=== PATIENT | male | born 1990 | race Caucasian/White ===

== ENCOUNTER → 2022-07-20 11:10 | Outpatient (CLI) | payer OTHER, SELFPAY ==
[2022-07-20 12:07] LABS: COVID19 -Nasal RAPID Negative (Negative)
--- NOTE | 2022-07-26 09:35 | PM.PFT.1 ---
Pulmonary Function Test Referral & Results Date Patient Seen: 07/20/22 Requesting provider: Nelson Moore Results: The spirometry demonstrates an FVC of 4.47 L which is 82% of predicted. The FEV1 was measured at 3.94 L which is 89% of predicted. The FEV1/FVC ratio was 88 which is 108% of predicted. Following the administration of bronchodilator there was no appreciable change to above essentially normal numbers. Interpretation: This study demonstrates probably normal forced pulmonary function. There may be a minimal reduction in FEV1 but I would consider this to be normal study
== END ==
PROVIDERS: Referring Provider Chiropractor; Visit Provider Chiropractor
DX: J31.0 Chronic rhinitis (principal); J93.9 Pneumothorax, unspecified; Z20.822 Contact with and (suspected) exposure to COVID-19
CPT/HCPCS: 87635; 94060; C9803

== ENCOUNTER → 2022-07-31 07:20 | Outpatient (CLI) | payer OTHER, SELFPAY ==
--- NOTE | 2022-07-31 07:27 | DI.RAD.S_ITS ---
PROCEDURE: XR CHEST 2V INDICATIONS: CHRONIC RHINTITIS TECHNIQUE: 2 views of the chest were acquired. COMPARISON: None. FINDINGS: Surgical changes and devices: None. Lungs and pleura: Lungs are clear. No pleural effusions or pneumothorax. Mediastinum: Mediastinal contours are normal. Heart size is normal. Bones and chest wall: No suspicious bony abnormalities. Soft tissues appear unremarkable. IMPRESSION: No acute pulmonary process. Dictated by: Tania Bernardo M.D. on 07/31/2022 at 10:59 Approved by: Tania Bernardo M.D. on 07/31/2022 at 10:59
== END ==
PROVIDERS: Referring Provider Chiropractor; Visit Provider Chiropractor
DX: J93.9 Pneumothorax, unspecified (principal); J31.0 Chronic rhinitis
CPT/HCPCS: 71046